=== PATIENT | female | born 1975 | race African-American/Black ===

== ENCOUNTER 2018-03-01 08:11 | Emergency (ER) | payer OTHER ==
[~2018-03-01 08:11] MED LIST: CYCL5TAB PO; HYDR-2758 PO; HYDR-79 PO; HYDR-971 PO; PENI250T85 PO
[2018-03-01 08:30] VITALS: BP 133/90
[2018-03-01] MEDS ORDERED: PENI500T PO (08:33)
--- NOTE | 2018-03-01 08:33 | PHYS DOC ---
Past History Past Medical History: No Pertinent History, Other Past Surgical History: No Surgical History Alcohol Use: Occasionally Drug Use: None Adult General Chief Complaint Chief Complaint: DENTAL PROBLEM HPI HPI 42-year-old otherwise healthy female presenting the emergency department with right lower dental pain. Pain is a throbbing sensation for the past couple weeks. She denies any fevers chills difficulty breathing or difficulty swallowing. Review of systems is negative for stridor drooling neck swelling or tongue swelling. All other review of systems is negative unless otherwise noted in history of present illness. ED course: 42-year-old female presenting with dental pain. No periapical abscess. Patient is well-appearing. No tongue swelling. No peritonsillar abscess. The right back molar tooth has a large cavity. We will refer the patient to the dentist today. Ibuprofen and Tylenol as needed. We will give her 3 days penicillin in the interim.The patient has been examined and was not found to have an emergency medical condition. The patient was then discharged home in stable condition. They were to return if their symptoms worsened or if they were concerned for any reason. They were also instructed to return to the emergency department if they were unable to get the recommended and appropriate follow-up. [id number] discharge instructions and return precautions were given. Patient's questions were answered to their satisfaction. Patient is comfortable with plan. Review of Systems Review of Systems SEE ABOVE. Allergies Allergies Allergies Coded Allergies Type Severity Reaction Last Updated Verified No Known Drug Allergies 04/21/16 No Physical Exam Physical Exam SEE ABOVE Constitutional: Well developed, well nourished, no acute distress, non-toxic appearance. [] HENT: Normocephalic, atraumatic, bilateral external ears normal, oropharynx moist, no oral exudates, nose normal. Cavity in the right back bottom molar tooth Eyes: PERRLA, EOMI, conjunctiva normal, no discharge. [] Neck: Normal range of motion, no tenderness, supple, no stridor. [] Cardiovascular:Heart rate regular rhythm, no murmur [] Skin: Warm, dry, no erythema, no rash. [] Extremities: No tenderness, no cyanosis, no clubbing, ROM intact, no edema. [] Neurologic: Alert and oriented X 3, normal motor function, normal sensory function, no focal deficits noted. [] Psychologic: Affect normal, judgement normal, mood normal. [] EKG EKG [] Radiology/Procedures Radiology/Procedures [] Course & Med Decision Making Course & Med Decision Making Pertinent Labs and Imaging studies reviewed. (See chart for details) [] Dragon Disclaimer Dragon Disclaimer This electronic medical record was generated, in whole or in part, using a voice recognition dictation system. Departure Departure: Impression: Primary Impression: Pain, dental Disposition: 01 HOME, SELF-CARE Condition: STABLE Referrals: GABRIEL CHAPA MD (PCP) Patient Instructions: Dental Pain, [id number] Additional Instructions: Thank you for allowing us to participate in your care today. Return to the emergency department you have any new or worsening symptoms, or if you are concerned for any reason. Return to emergency department if you have any new or concerning symptoms including but not limited to fever, chills, nausea, vomiting, intractable pain, any new rashes, chest pain, shortness of air , uncontrolled bleeding, difficulty breathing, and/or vision loss. Follow up with a dentist today. Call your Primary Doctor tomorrow and inform them of your visit today. If you do not have a primary care provider we are happy to provide you with a list of our primary care providers contact information. This condition should be evaluated by your primary care physician and any recommended consulting services for continued management within 2-3 days after discharge. If at any time, you are having difficulty getting into your primary care doctor or a specialist, return to the emergency department. Scripts Penicillin V Potassium (PENICILLIN V POTASSIUM) 500 Mg Tablet 1 TAB PO BID, #10 TAB 0 Refills Prov: ANDER RODRIGUEZ MD 03/01/18 ANDER RODRIGUEZ MD Mar 01, 2018 08:33
== END 2018-03-01 08:34 | disposition home or self-care (01) ==
LOC: ER 08:11
DX: K08.89 Other specified disorders of teeth and supporting structures (principal)
CPT/HCPCS: 99283